=== PATIENT | female | born 1955 | race Caucasian/White ===

== ENCOUNTER 2016-02-21 08:26 | Emergency (ER) | payer BC ==
[~2016-02-21] VITALS: Ht 167.6 cm; Wt 55.0 kg
[2016-02-21 08:28] VITALS: TEMP 36.8; Ht 167.6 cm; Wt 55.0 kg
--- NOTE | 2016-02-21 08:49 | EMERGENCY ROOM VISIT NOTE ---
History First contact with patient: 08:32 Chief Complaint: NEURO SYMPTOMS Stated Complaint: FEVER, MEMORY LOSS WHILE AT THE GYM Nursing Triage Summary: Pt states, "I was at the gym working out hard. I didn't eat and also just got back from [place] so my body isn't back to normal. All the sudden I forgot what was happening for a couple mins. I went home and took my bp and it was high. At one point my diastolic was 100. I think my bp was 180/100." Pt denies h/a. Answering questions appopriately in triage. History of Present Illness The patient is a 60 year old female who presents to the Emergency Room with complaints of an episode of confusion and memory loss, associated with an elevated blood pressure. Patient was at the gym this morning, when suddenly her friends noticed that she was very confused and couldn't remember what she had done or where she was going next. The episode lasted a few minutes, and was not associated with facial drooping, slurring speech, limb weakness, visual deficits or headache. She denies LOC, chest pain or shortness of breath. When the patient got home, she measured her blood pressure and it was elevated at 180/100, but it has since decreased to 133/99. Patient claims she is sleep deprived after having returned from her trip to [place] on Saturday, she had coffee and very little food before going to the gym , and is dealing with personal life stressors as well. This is not the first time she has gone to the gym since returning home last Saturday. Patient states that she did recently suffer an injury to her head 2 days ago after hitting it off of the corner of a cabinet, but she didn't suffer symptoms at that time. Currently, she denies being in any discomfort, but she is still having difficulty remembering the events that happened during the episode of confusion earlier today. Patient denies recent fevers, chills, abdominal pain, nausea, vomiting, diarrhea or urinary symptoms. Review of Systems See HPI for pertinent positives and negatives. A total of ten systems were reviewed and were otherwise negative. Past Medical/Surgical History Medical Problems: (1) Cataract (2) Osteoporosis (3) Radial head fracture Social History Smoking Status: Former Smoker Current/Historical Medications No Active Prescriptions or Reported Meds Allergies Coded Allergies: Penicillins (Verified Allergy, Unknown, .., 02/21/16) Physical Exam Vital Signs Date Time Temp Pulse Resp B/P Pulse Ox O2 Delivery O2 Flow Rate FiO2 02/21/16 11:20 72 18 130/78 100 02/21/16 09:40 74 18 128/87 99 Room Air 02/21/16 08:58 85 02/21/16 08:53 78 18 144/93 99 Room Air 02/21/16 08:52 98 Room Air 02/21/16 08:28 36.8 89 18 151/89 99 Room Air Physical Exam GENERAL: alert, well appearing, thin, sitting in bed, no acute distress, non- toxic HEAD: Normocephalic, atraumatic. Tenderness above left eyebrow due to recent trauma without No sinus tenderness. EYES: PERRL, EOMI, normal conjunctiva OROPHARYNX: no exudate, no erythema, lips, buccal mucosa, and tongue normal and mucous membranes are dry NECK: supple, no nuchal rigidity, no adenopathy, non-tender LUNGS: Clear to auscultation. Normal chest wall mechanics, good air entry. No crepitations, crackles, or wheezes HEART: no murmurs, S1 normal and S2 normal CHEST: No reproducible tenderness. ABDOMEN: abdomen soft, non-tender, normo-active bowel sounds, no masses, no rebound or guarding. BACK: Back is symmetrical on inspection, no deformities, no midline tenderness, no CVA tenderness. SKIN: Warm, pink, dry. No erythema, rashes, or bruising. EXTREMITIES: Grossly normal. Moving all 4 limbs, strength 5/5. No pitting edema. Calves non tender. NEURO: Alert, Ox3. No focal deficits. Normal sensorium. Cranial nerves II-XII intact except uvular deviation to left. Normal speech. Kernig and Brudzinski negative. 5/5 cloth handler strength. 5/5 strength on leg raise. PSYCH: Mood and affect appropriate. Medical Decision & Procedures ER Provider Diagnostic Interpretation: CHEST ONE VIEW PORTABLE HISTORY: Fever. Stroke COMPARISON: Chest 06/16/2010. FINDINGS: The lungs are clear. Cardiac silhouette is normal in size. No pleural effusions. No pneumothorax. IMPRESSION: No acute process. CT SCAN OF THE BRAIN WITHOUT IV CONTRAST CLINICAL HISTORY: Strokelike symptoms. Memory loss. COMPARISON STUDY: No priors. TECHNIQUE: Unenhanced axial CT scan of the brain is performed from the vertex to the skull base. Automated dose control exposure was utilized. CT DOSE: 614.27 mGy.cm FINDINGS: Brain parenchyma: The brain parenchyma is normal in appearance. There is no hemorrhage, mass effect, or evidence of acute territorial ischemia by CT criteria. Vee-white matter is preserved. No extra-axial fluid collection is seen. Ventricles, sulci, cisterns: Normal in configuration. Intracranial vasculature: The visualized intracranial vasculature at the skull base is normal in appearance. Calvarium: Unremarkable. Sinuses and mastoids: There is trace mucosal thickening in the left maxillary antrum. The remaining visualized paranasal sinuses are clear. The mastoid air cells are well pneumatized. Orbits: The bony orbits are grossly intact. IMPRESSION: There is no hemorrhage, mass effect, or evidence of acute territorial ischemia by CT criteria. ULTRASOUND BILATERAL LOWER EXTREMITY VENOUS CLINICAL HISTORY: Fever. Memory loss. Fall. Transient ischemic attack. COMPARISON STUDY: No priors. TECHNIQUE: Real-time, grayscale, and color Doppler sonography of the deep veins of the right and left lower extremity was performed from the inguinal crease to the calf. Compression and augmentation were utilized. FINDINGS: There is no sonographic evidence of deep venous thrombosis identified in the right or left lower extremity. The common femoral, superficial femoral, and popliteal veins are patent and normally compressible bilaterally. The greater saphenous vein and the profunda femoris vein at the junction with the common femoral vein are clear in both legs. The visualized calf veins are patent bilaterally. IMPRESSION: There is no sonographic evidence of deep venous thrombosis identified in the right or left lower extremity. Laboratory Results 02/21/16 09:05 Red Blood Count 4.75, Mean Corpuscular Volume 86.3, Mean Corpuscular Hemoglobin 29.3, Mean Corpuscular Hemoglobin Concent 33.9, Mean Platelet Volume 12.1, Neutrophils (%) (Auto) 77.1, Lymphocytes (%) (Auto) 15.5, Monocytes (%) (Auto) 6.4, Eosinophils (%) (Auto) 0.4, Basophils (%) (Auto) 0.3, Neutrophils # (Auto) 6.06, Lymphocytes # (Auto) 1.22, Monocytes # (Auto) 0.50, Eosinophils # (Auto) 0.03, Basophils # (Auto) 0.02 02/21/16 09:05 Test 02/21/16 08:53 02/21/16 09:05 Urine Opiates Screen NEG (NEG) Urine Methadone, Qualitative NEG (NEG) Urine Barbiturates NEG (NEG) Urine Phencyclidine (PCP) Level NEG (NEG) Ur Amphetamine/Methamphetamine NEG (NEG) MDMA (Ecstasy) Screen NEG (NEG) Urine Benzodiazepines Screen NEG (NEG) Urine Cocaine Metabolite NEG (NEG) Urine Marijuana (THC) NEG (NEG) White Blood Count 7.85 K/uL (4.8-10.8) Red Blood Count 4.75 M/uL (4.2-5.4) Hemoglobin 13.9 g/dL (12.0-16.0) Hematocrit 41.0 % (37-47) Mean Corpuscular Volume 86.3 fL (80-100) Mean Corpuscular Hemoglobin 29.3 pg (25-34) Mean Corpuscular Hemoglobin Concent 33.9 g/dl (32-36) Platelet Count 115 K/uL (130-400) Mean Platelet Volume 12.1 fL (7.4-10.4) Neutrophils (%) (Auto) 77.1 % Lymphocytes (%) (Auto) 15.5 % Monocytes (%) (Auto) 6.4 % Eosinophils (%) (Auto) 0.4 % Basophils (%) (Auto) 0.3 % Neutrophils # (Auto) 6.06 K/uL (1.4-6.5) Lymphocytes # (Auto) 1.22 K/uL (1.2-3.4) Monocytes # (Auto) 0.50 K/uL (0.11-0.59) Eosinophils # (Auto) 0.03 K/uL (0-0.5) Basophils # (Auto) 0.02 K/uL (0-0.2) RDW Standard Deviation 41.7 fL (36.4-46.3) RDW Coefficient of Variation 13.2 % (11.5-14.5) Immature Granulocyte % (Auto) 0.3 % Immature Granulocyte # (Auto) 0.02 K/uL (0.00-0.02) Anion Gap 6.0 mmol/L (3-11) Est Creatinine Clear Calc Drug Dose 68.3 ml/min Estimated GFR () 98.8 Estimated GFR (Non- 85.3 BUN/Creatinine Ratio 27.2 (10-20) Calcium Level 9.0 mg/dl (8.5-10.1) Total Creatine Kinase 92 U/L (26-192) Creatine Kinase MB 2.4 ng/ml (0.5-3.6) Creatine Kinase MB Ratio 2.6 (0-3.0) Troponin I < 0.015 ng/ml (0-0.045) Medications Administered Medications (Trade) Dose Ordered Sig/Christin Route Start Time Stop Time Status Last Admin Dose Admin Sodium Chloride (Nss 1000ml) 1,000 ml @ 50 mls/hr Q20H IV 02/21/16 08:55 02/21/16 11:35 DC 02/21/16 09:16 50 MLS/HR ECG Indication: altered mental status Rhythm: normal sinus Findings: no acute ischemic change, no ectopy Comparison ECG Date: Prolonged IN interval Change: no significant change Medical Decision 60 year old female presented with acute episode of confusion and memory lapse The patient was evaluated in room B9. A complete history and physical exam was performed. Differential Diagnosis includes but is not limited to ischemic Stroke, hemorrhagic stroke, bells palsy, mass, neoplasm, migraine headache, seizure, subarachnoid hemorrhage, TIA, hypoglycemia, and transient global amnesia. Patient declined analgesia for symptom relief. Additionally, 1L of IV normal saline was given to improve hydration status. EKG showed normal sinus rhythm without ischemic changes Lab work was performed. CBC, BMP, and cardiac enzymes were all within normal limits. CXR revealed no acute process. CT showed There is no hemorrhage, mass effect, or evidence of acute territorial ischemia by CT criteria. U/S doppler reported There is no sonographic evidence of deep venous thrombosis identified in the right or left lower extremity. Urine screen was negative for any drugs/toxicology Patient was updated of results. She was advised to follow up with her PCP regarding her elevated blood pressure and return to the ER if symptoms returned or if other concerning symptoms presented. Patient understands and agreeable with care plan. Patient discharged home well. Impression Primary Impression: Altered mental state Additional Impression: Hypertension Departure Information Dispostion Home / Self-Care Condition GOOD Prescriptions No Active Prescriptions or Reported Meds Referrals Mike Stapleton M.D. (PCP) Patient Instructions A Signature Page, My [facility] Additional Instructions You were seen in the ED today for an acute episode of altered mental status and hypertension. You vitals were noted to be improved. Lab work done was all within normal limits. Imaging of the head, chest and the lower limbs were all normal as well. This was reassuring. Upon discharge, we urge you to follow up with your PCP with regards to your blood pressure. Controlling blood pressure is important for long-term health maintenance. You have been examined and treated today on an emergency basis only. This is not a substitute for, or an effort to provide, complete comprehensive medical care. It is impossible to recognize and treat all injuries or illnesses in a single emergency department visit. It is therefore important that you make a follow up with your physician for close monitoring. We urge you to return to ER if similar symptoms return or if you develop worsening or persistent dizziness, vomiting, headache, fevers, chest pains, difficulty breathing, black or bloody stools, slurred speech, numbness, weakness , visual changes, or as needed. Problem Qualifiers Primary Impression: Altered mental state Altered mental status type: transient alteration of awareness Qualified Codes : R40.4 - Transient alteration of awareness
[2016-02-21 08:52] VITALS: O2SAT 98
[2016-02-21] MEDS ORDERED: SODIUM CHLORIDE 0.9% 1000ML 1,000 ML IV SCH (08:55)
--- NOTE | 2016-02-21 09:21 | DIAGNOSTIC IMAGING REPORT ---
CHEST ONE VIEW PORTABLE HISTORY: Fever. Stroke COMPARISON: Chest 06/16/2010. FINDINGS: The lungs are clear. Cardiac silhouette is normal in size. No pleural effusions. No pneumothorax. IMPRESSION: No acute process. Electronically signed by: Delroy Kilgore M.D. 02/21/2016 9:19 AM Dictated Date/Time: 02/21/2016 9:15 AM
[2016-02-21 09:31] LABS: BENZODIAZEPINE, URINE NEG (NEG); COCAINE,URINE NEG (NEG); PHENCYCLIDINE, URINE NEG (NEG)
--- NOTE | 2016-02-21 09:49 | DIAGNOSTIC IMAGING REPORT ---
CT SCAN OF THE BRAIN WITHOUT IV CONTRAST CLINICAL HISTORY: Strokelike symptoms. Memory loss. COMPARISON STUDY: No priors. TECHNIQUE: Unenhanced axial CT scan of the brain is performed from the vertex to the skull base. Automated dose control exposure was utilized. CT DOSE: 614.27 mGy.cm FINDINGS: Brain parenchyma: The brain parenchyma is normal in appearance. There is no hemorrhage, mass effect, or evidence of acute territorial ischemia by CT criteria. Vee-white matter is preserved. No extra-axial fluid collection is seen. Ventricles, sulci, cisterns: Normal in configuration. Intracranial vasculature: The visualized intracranial vasculature at the skull base is normal in appearance. Calvarium: Unremarkable. Sinuses and mastoids: There is trace mucosal thickening in the left maxillary antrum. The remaining visualized paranasal sinuses are clear. The mastoid air cells are well pneumatized. Orbits: The bony orbits are grossly intact. IMPRESSION: There is no hemorrhage, mass effect, or evidence of acute territorial ischemia by CT criteria. Electronically signed by: Eliezer Shah M.D. 02/21/2016 9:47 AM Dictated Date/Time: 02/21/2016 9:41 AM
[2016-02-21 09:51] LABS: BLOOD UREA NITROGEN 21 mg/dl (7-18); BUN/CREATININE RATIO 27.2 (10-20); CARBON DIOXIDE 31 mmol/L (21-32); CHLORIDE 106 mmol/L (98-107); CREATININE 0.76 mg/dl (0.60-1.20); GLUCOSE 87 mg/dl (70-99); POTASSIUM 3.8 mmol/L (3.5-5.1); SODIUM 143 mmol/L (136-145)
[2016-02-21 09:56] LABS: CKMB/CK RATIO 2.6 (0-3.0)
[2016-02-21 09:57] LABS: BASO % 0.3 %; BASO ABS # 0.02 K/uL (0-0.2); COMPLETE YES; EOS % 0.4 %; IG% 0.3 %; LYMPH % 15.5 %; LYMPH ABS # 1.22 K/uL (1.2-3.4); MEAN CELL VOLUME 86.3 fL (80-100); MEAN CORPUSCULAR HEMOGLOBIN 29.3 pg (25-34); MEAN CORPUSCULAR HGB CONC 33.9 g/dl (32-36); MEAN PLATELET VOLUME 12.1 fL (7.4-10.4); MONO % 6.4 %; NEUT % 77.1 %; PLATELET COUNT 115 K/uL (130-400); RED BLOOD COUNT 4.75 M/uL (4.2-5.4); WHITE BLOOD COUNT 7.85 K/uL (4.8-10.8)
--- NOTE | 2016-02-21 10:39 | DIAGNOSTIC IMAGING REPORT ---
ULTRASOUND BILATERAL LOWER EXTREMITY VENOUS CLINICAL HISTORY: Fever. Memory loss. Fall. Transient ischemic attack. COMPARISON STUDY: No priors. TECHNIQUE: Real-time, grayscale, and color Doppler sonography of the deep veins of the right and left lower extremity was performed from the inguinal crease to the calf. Compression and augmentation were utilized. FINDINGS: There is no sonographic evidence of deep venous thrombosis identified in the right or left lower extremity. The common femoral, superficial femoral, and popliteal veins are patent and normally compressible bilaterally. The greater saphenous vein and the profunda femoris vein at the junction with the common femoral vein are clear in both legs. The visualized calf veins are patent bilaterally. IMPRESSION: There is no sonographic evidence of deep venous thrombosis identified in the right or left lower extremity. Electronically signed by: Eliezer Shah M.D. 02/21/2016 10:37 AM Dictated Date/Time: 02/21/2016 10:37 AM
--- NOTE | 2016-02-21 11:15 | EMERGENCY ROOM VISIT NOTE ---
History Report prepared by Geovany: Alida Castañeda Under the Supervision of: Dr. Kelechi Barnard M.D. First contact with patient: 08:32 Chief Complaint: NEURO SYMPTOMS Stated Complaint: FEVER, MEMORY LOSS WHILE AT THE GYM Nursing Triage Summary: Pt states, "I was at the gym working out hard. I didn't eat and also just got back from [place] so my body isn't back to normal. All the sudden I forgot what was happening for a couple mins. I went home and took my bp and it was high. At one point my diastolic was 100. I think my bp was 180/100." Pt denies h/a. Answering questions appopriately in triage. History of Present Illness The patient is a 60 year old female who presents to the Emergency Room with complaints of a sudden onset of confusion, lasting a couple of minutes, while at the gym earlier this morning. Currently, she denies being in any discomfort, but she is still having difficulty remembering the events that happened during the episode of confusion earlier today. At the time of onset, the patient was working out at the gym when her friends noticed that she suddenly seemed to become confused as she didn't remember rotating through the previous station, or where she was supposed to go next, which is abnormal for her. During the episodes, she denies experiencing unilateral weakness, facial droop, slurred speech, visual deficits or headache. She also did not lose consciousness, have chest pain or become short of breath. Patient states that she did recently suffer an injury to her head 2 days ago after hitting it off of the corner of a cabinet, but she didn't suffer symptoms at that time. She also just returned home from [place] last week and is still recovering from the time change. This is the first time she has gone to the gym since returning home. also notes that she did not eat breakfast this morning before going to the gym. When the patient got home, she measured her blood pressure and it was elevated at 180/100 , but it has since decreased to 133/99. Patient denies recent fevers, chills, chest pain, shortness of breath, abdominal pain, nausea, vomiting, diarrhea or urinary symptoms. Source of History: patient Onset: earlier this morning Position: head Symptom Intensity: no current discomfort Quality: other (confusion) Timing: other (brief episode) Modifying Factors (Worsening): other (working out at the gym) Associated Symptoms: No LOC, No SOB, No abdominal pain, No chest pain, No chills, No diarrhea, No fevers, No headache, No nausea, No urinary symptoms, No vomiting Review of Systems See HPI for pertinent positives & negatives. A total of 10 systems reviewed and were otherwise negative. Social History Smoking Status: Former Smoker Marital Status: Housing Status: lives with significant other Occupation Status: other (dairy products maker) Current/Historical Medications No Active Prescriptions or Reported Meds Allergies Coded Allergies: Penicillins (Verified Allergy, Unknown, .., 02/21/16) Physical Exam Vital Signs Date Time Temp Pulse Resp B/P Pulse Ox O2 Delivery O2 Flow Rate FiO2 02/21/16 11:20 72 18 130/78 100 02/21/16 09:40 74 18 128/87 99 Room Air 02/21/16 08:58 85 02/21/16 08:53 78 18 144/93 99 Room Air 02/21/16 08:52 98 Room Air 02/21/16 08:28 36.8 89 18 151/89 99 Room Air Physical Exam GENERAL: Patient is a healthy-appearing well-nourished female HEAD: Normocephalic atraumatic EYES: Ocular movements intact pupils equal and react to light OROPHARYNX mucous membranes are moist no exudates present no erythema or edema present NECK: Supple no nuchal rigidity CHEST: Good equal expansion LUNGS: Clear and equal to auscultation CARDIAC: Normal S1 and S2 ABDOMEN: Soft nontender no guarding BACK: No CVA tenderness EXTREMITIES: No pain upon palpation normal muscle strength in all groups no clubbing cyanosis or edema NEURO: Patient is following commands is answering questions appropriately. Alert and oriented x3 Cranial Nerves 2-12 grossly intact Medical Decision & Procedures ER Provider Diagnostic Interpretation: CT and US results as stated below per my review and radiologist interpretation: X-ray results as stated below per interpretation by me and the radiologist: ULTRASOUND BILATERAL LOWER EXTREMITY VENOUS CLINICAL HISTORY: Fever. Memory loss. Fall. Transient ischemic attack. COMPARISON STUDY: No priors. TECHNIQUE: Real-time, grayscale, and color Doppler sonography of the deep veins of the right and left lower extremity was performed from the inguinal crease to the calf. Compression and augmentation were utilized. FINDINGS: There is no sonographic evidence of deep venous thrombosis identified in the right or left lower extremity. The common femoral, superficial femoral, and popliteal veins are patent and normally compressible bilaterally. The greater saphenous vein and the profunda femoris vein at the junction with the common femoral vein are clear in both legs. The visualized calf veins are patent bilaterally. IMPRESSION: There is no sonographic evidence of deep venous thrombosis identified in the right or left lower extremity. Electronically signed by: Eliezer Shah M.D. 02/21/2016 10:37 AM Dictated Date/Time: 02/21/2016 10:37 AM CHEST ONE VIEW PORTABLE HISTORY: Fever. Stroke COMPARISON: Chest 06/16/2010. FINDINGS: The lungs are clear. Cardiac silhouette is normal in size. No pleural effusions. No pneumothorax. IMPRESSION: No acute process. Electronically signed by: Delroy Kilgore M.D. 02/21/2016 9:19 AM Dictated Date/Time: 02/21/2016 9:[address] SCAN OF THE BRAIN WITHOUT IV CONTRAST CLINICAL HISTORY: Strokelike symptoms. Memory loss. COMPARISON STUDY: No priors. TECHNIQUE: Unenhanced axial CT scan of the brain is performed from the vertex to the skull base. Automated dose control exposure was utilized. CT DOSE: 614.27 mGy.cm FINDINGS: Brain parenchyma: The brain parenchyma is normal in appearance. There is no hemorrhage, mass effect, or evidence of acute territorial ischemia by CT criteria. Vee-white matter is preserved. No extra-axial fluid collection is seen. Ventricles, sulci, cisterns: Normal in configuration. Intracranial vasculature: The visualized intracranial vasculature at the skull base is normal in appearance. Calvarium: Unremarkable. Sinuses and mastoids: There is trace mucosal thickening in the left maxillary antrum. The remaining visualized paranasal sinuses are clear. The mastoid air cells are well pneumatized. Orbits: The bony orbits are grossly intact. IMPRESSION: There is no hemorrhage, mass effect, or evidence of acute territorial ischemia by CT criteria. Electronically signed by: Eliezer Shah M.D. 02/21/2016 9:47 AM CHEST ONE VIEW PORTABLE HISTORY: Fever. Stroke COMPARISON: Chest 06/16/2010. FINDINGS: The lungs are clear. Cardiac silhouette is normal in size. No pleural effusions. No pneumothorax. IMPRESSION: No acute process. Electronically signed by: Delroy Kilgore M.D. 02/21/2016 9:19 AM Dictated Date/Time: 02/21/2016 9:15 AM Laboratory Results 02/21/16 09:05 Red Blood Count 4.75, Mean Corpuscular Volume 86.3, Mean Corpuscular Hemoglobin 29.3, Mean Corpuscular Hemoglobin Concent 33.9, Mean Platelet Volume 12.1, Neutrophils (%) (Auto) 77.1, Lymphocytes (%) (Auto) 15.5, Monocytes (%) (Auto) 6.4, Eosinophils (%) (Auto) 0.4, Basophils (%) (Auto) 0.3, Neutrophils # (Auto) 6.06, Lymphocytes # (Auto) 1.22, Monocytes # (Auto) 0.50, Eosinophils # (Auto) 0.03, Basophils # (Auto) 0.02 02/21/16 09:05 Test 02/21/16 08:53 02/21/16 09:05 Urine Opiates Screen NEG (NEG) Urine Methadone, Qualitative NEG (NEG) Urine Barbiturates NEG (NEG) Urine Phencyclidine (PCP) Level NEG (NEG) Ur Amphetamine/Methamphetamine NEG (NEG) MDMA (Ecstasy) Screen NEG (NEG) Urine Benzodiazepines Screen NEG (NEG) Urine Cocaine Metabolite NEG (NEG) Urine Marijuana (THC) NEG (NEG) White Blood Count 7.85 K/uL (4.8-10.8) Red Blood Count 4.75 M/uL (4.2-5.4) Hemoglobin 13.9 g/dL (12.0-16.0) Hematocrit 41.0 % (37-47) Mean Corpuscular Volume 86.3 fL (80-100) Mean Corpuscular Hemoglobin 29.3 pg (25-34) Mean Corpuscular Hemoglobin Concent 33.9 g/dl (32-36) Platelet Count 115 K/uL (130-400) Mean Platelet Volume 12.1 fL (7.4-10.4) Neutrophils (%) (Auto) 77.1 % Lymphocytes (%) (Auto) 15.5 % Monocytes (%) (Auto) 6.4 % Eosinophils (%) (Auto) 0.4 % Basophils (%) (Auto) 0.3 % Neutrophils # (Auto) 6.06 K/uL (1.4-6.5) Lymphocytes # (Auto) 1.22 K/uL (1.2-3.4) Monocytes # (Auto) 0.50 K/uL (0.11-0.59) Eosinophils # (Auto) 0.03 K/uL (0-0.5) Basophils # (Auto) 0.02 K/uL (0-0.2) RDW Standard Deviation 41.7 fL (36.4-46.3) RDW Coefficient of Variation 13.2 % (11.5-14.5) Immature Granulocyte % (Auto) 0.3 % Immature Granulocyte # (Auto) 0.02 K/uL (0.00-0.02) Anion Gap 6.0 mmol/L (3-11) Est Creatinine Clear Calc Drug Dose 68.3 ml/min Estimated GFR () 98.8 Estimated GFR (Non- 85.3 BUN/Creatinine Ratio 27.2 (10-20) Calcium Level 9.0 mg/dl (8.5-10.1) Total Creatine Kinase 92 U/L (26-192) Creatine Kinase MB 2.4 ng/ml (0.5-3.6) Creatine Kinase MB Ratio 2.6 (0-3.0) Troponin I < 0.015 ng/ml (0-0.045) Labs reviewed by ED physician. Medications Administered Medications (Trade) Dose Ordered Sig/Christin Route Start Time Stop Time Status Last Admin Dose Admin Sodium Chloride (Nss 1000ml) 1,000 ml @ 50 mls/hr Q20H IV 02/21/16 08:55 03/22/16 08:54 02/21/16 09:16 50 MLS/HR ECG Indication: altered mental status Rate (beats per minute): 75 Rhythm: normal sinus Findings: no acute ischemic change, no ectopy ED Course 0830: Past medical records reviewed. The patient was evaluated in room B9. A complete history and physical examination was performed. 0855: NSS 1,000 ml @ 50 mls/hr IV was ordered. 0930: Patient was doing well at this time. She will go to US for additional radiograph studies. 1050: The patient was reevaluated at this time and was asymptomatic. I updated her on the results of her radiology reports and lab tests. Discharge instructions were also discussed at this time. She verbalized her understanding and agreement with the treatment plan, and she is now ready for disposition. Medical Decision Differential diagnosis: Etiologies such as metabolic, infection, hypo/hyperglycemia, electrolyte abnormalities, cardiac sources, intracerebral event, toxicologic, neurologic, as well as others were entertained. This is a 60-year-old female who presents emergency department complaining of sudden onset of acute memory loss. The patient does not remember the time period that she cannot account for while she was exercising in gym class today. Per bystanders the patient appeared confused. She also just arrived off a plane from a trip to [place] proximally 1 week ago. The patient was hypertensive during this event however her blood pressure has slowly come down. I do believe the patient may be suffering from either hypertensive urgency or TIA. For this reason she was sent for ultrasounds of her bilateral legs as well as a CAT scan of the head. Her test did not reveal any acute process. The patient believe she is under high stress due to a family incident at home. She denies being suicidal or homicidal. I strongly recommended that the patient follow-up with her primary care physician as she appears to be back at her baseline for continued stroke workup as the pt is reluctant to continue workup in the emergency department. Resident Physician Supervision Note: I was present with Dr. Galvan during the history and exam. I discussed the case with the resident and agree with the findings and plan as documented in the note. Documented By: Kelechi Barnard Impression Primary Impression: Altered mental state Additional Impression: Hypertension Scribe Attestation The scribe's documentation has been prepared under my direction and personally reviewed by me in its entirety. I confirm that the note above accurately reflects all work, treatment, procedures, and medical decision making performed by me. Departure Information Dispostion Home / Self-Care Prescriptions No Active Prescriptions or Reported Meds Referrals Mike Stapleton M.D. (PCP) Forms HOME CARE DOCUMENTATION FORM, IMPORTANT VISIT INFORMATION Patient Instructions A Signature Page, My [facility] [employer] Additional Instructions You were seen in the ED today for an acute episode of altered mental status and hypertension. You vitals were noted to be improved. Lab work done was all within normal limits. Imaging of the head, chest and the lower limbs were all normal as well. This was reassuring. Upon discharge, we urge you to follow up with your PCP with regards to your blood pressure. 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 You have been examined and treated today on an emergency basis only. This is not a substitute for, or an effort to provide, complete comprehensive medical care. It is impossible to recognize and treat all injuries or illnesses in a single emergency department visit. It is therefore important that you make a follow up with your physician for close monitoring. We urge you to return to ER if similar symptoms return or if you develop worsening or persistent dizziness, vomiting, headache, fevers, chest pains, difficulty breathing, black or bloody stools, slurred speech, numbness, weakness , visual changes, or as needed. Problem Qualifiers Primary Impression: Altered mental state Altered mental status type: transient alteration of awareness Qualified Codes : R40.4 - Transient alteration of awareness Additional Impression: Hypertension Hypertension type: unspecified secondary hypertension Qualified Codes: I15.9 - Secondary hypertension, unspecified
[2016-02-21 11:20] VITALS: BP 130/78; PULSE 72; O2SAT 100
== END 2016-02-21 11:21 | disposition home or self-care (01) ==
LOC: C.EDB 08:27
DX: R41.82 Altered mental status, unspecified (principal); I10 Essential (primary) hypertension; Z87.891 Personal history of nicotine dependence

== ENCOUNTER → 2016-03-21 | Outpatient (CLI) | payer BC ==
[~2016-03-21] MED LIST: CHOL1CAP57 PO
--- NOTE | 2016-03-22 12:37 | MAMMOGRAPHY REPORT ---
BILATERAL DIGITAL SCREENING MAMMOGRAM TOMOSYNTHESIS WITH CAD: 03/21/2016 CLINICAL HISTORY: Routine screening. Patient has no complaints. TECHNIQUE: Breast tomosynthesis in addition to standard 2D mammography was performed. Current study was also evaluated with a Computer Aided Detection (CAD) system. COMPARISON: Comparison is made to exams dated: 01/21/2015 mammogram, 09/25/2012 mammogram, 06/11/2007 mammogram, and 02/02/2015 mammogram - [facility]. BREAST COMPOSITION: The tissue of both breasts is almost entirely fatty. FINDINGS: The parenchymal pattern is unchanged. No developing mass, architectural distortion or clu ster of suspicious microcalcifications is seen in either breast. IMPRESSION: ACR BI-RADS CATEGORY 2: BENIGN There is no mammographic evidence of malignancy. A 1 year screening mammogram is recommended. The p atient will receive written notification of the results. Approximately 10% of breast cancers are not detected with mammography. A negative mammographic repor t should not delay biopsy if a clinically suggestive mass is present. Teressa Dozier M.D. ay/:03/21/2016 22:20:01 Crew Foreman: Boubacar MOHAMUD(R)(M), [facility] letter sent: Normal 1/2 BI-RADS Code: ACR BI-RADS Category 2: Benign
== END | disposition home or self-care (01) ==
LOC: C.MAMM 16:28
PROVIDERS: ATTEND Family Medicine
DX: Z12.31 Encounter for screening mammogram for malignant neoplasm of breast (principal)

== ENCOUNTER 2016-04-13 07:59 | Emergency (ER) | payer BC ==
[~2016-04-13] VITALS: Ht 167.6 cm; Wt 55.6 kg
[2016-04-13 08:12] VITALS: TEMP 36.4; Ht 167.6 cm; Wt 55.6 kg
[2016-04-13 08:16] VITALS: O2SAT 100
[2016-04-13] MEDS ORDERED: ASPIRIN 324 MG CHEW PO STA (08:22)
[2016-04-13] MEDS ORDERED: NITROGLYCERIN OINT 2% 1GM PACKET EXT STA (08:22)
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
[2016-04-13] MEDS ORDERED: CHOL1CAP57 PO (08:48)
[2016-04-13 09:12] LABS: BUN/CREATININE RATIO 23.1 (10-20); CALCIUM 8.9 mg/dl (8.5-10.1); CREATININE 0.74 mg/dl (0.60-1.20); POTASSIUM 3.9 mmol/L (3.5-5.1)
[2016-04-13 09:17] LABS: ALB/GLOB RATIO 1.2 (0.9-2); CKMB/CK RATIO 3.1 (0-3.0)
--- NOTE | 2016-04-13 09:19 | DIAGNOSTIC IMAGING REPORT ---
TWO VIEW CHEST CLINICAL HISTORY: Atypical chest pain radiating the back. FINDINGS: PA and lateral chest radiographs are compared to study dated 02/21/2016. The heart is top normal in size. There is atherosclerotic calcification of the thoracic aorta. Emphysema and chronic interstitial thickening are similar to previous. No airspace consolidation or pleural effusion is identified. There is no pneumothorax. The skeletal structures are osteopenic. The bony thorax appears intact. IMPRESSION: Emphysematous change with no acute cardiopulmonary abnormality. Electronically signed by: Eliezer Shah M.D. 04/13/2016 9:17 AM Dictated Date/Time: 04/13/2016 9:08 AM
[2016-04-13 09:23] LABS: HEMATOCRIT 41.6 % (37-47); MEAN CORPUSCULAR HEMOGLOBIN 28.7 pg (25-34); MEAN CORPUSCULAR HGB CONC 33.4 g/dl (32-36); MEAN PLATELET VOLUME 12.4 fL (7.4-10.4); PLATELET COUNT 114 K/uL (130-400); RED BLOOD COUNT 4.84 M/uL (4.2-5.4); WHITE BLOOD COUNT 7.63 K/uL (4.8-10.8)
[2016-04-13 09:25] LABS: BASO % 0.1 %; BASO ABS # 0.01 K/uL (0-0.2); COMPLETE YES; EOS % 0.8 %; IG% 0.1 %; LYMPH % 16.3 %; LYMPH ABS # 1.24 K/uL (1.2-3.4); MONO % 8.5 %; NEUT % 74.2 %; PLT ESTIMATE DECREASED
[2016-04-13 14:31] VITALS: BP 111/68; PULSE 76; O2SAT 99
--- NOTE | 2016-04-13 16:21 | EXERCISE STRESS ECHO ---
*NOTICE TO RECEIVING [employer] This information is strictly Confidential and protected under [place] law. [place] law prohibits you from making any further disclosure of this information unless further disclosure is expressly permitted by the written consent of the person to whom it pertains or is authorized by law. A general authorization for the release of medical or other information is not sufficient for this purpose. Hospital accepts no responsibility if the information is made available to any other person, INCLUDING THE PATIENT. Interpretation Summary * Name: ISIDRA LOZA Study Date: 04/13/2016 12:53 PM BP: 137/91 mmHg * Patient Location: [facility] HR: 62 * : 1955 (M/d/yyyy) Gender: Female Height: 66 in * Age: 60 yrs Ethnicity: [place] Weight: 122 lb * Ordering Physician: Óscar Henderson * Referring Physician: ÓSCAR HENDERSON * Performed By: Emily Silvestre RDCS * * Reason For Study: CHEST PAIN * BSA: 1.6 m2 * History: CHEST PAIN * -- Conclusions -- * Normal exercise echocardiogram withotu inducible ischemia * The left ventricular wall motion is normal at rest. * Left ventricular systolic function is normal. * There is mild mitral regurgitation. Procedure Details * ECHOEX, CPT #33033 Left Ventricular Findings with Stress * Patient had good exercise tolerance No EKG or echo findings suggestive of ischemia Normal BP response Mild index symptoms of atypical chest pain were noted and resolved with a change in position Good heart rate recovery Cazares treadmill score: 6 (low risk) Left Ventricle * The left ventricle is normal in size. * Large papillary muscle * Ejection Fraction = 55-60%. * Left ventricular systolic function is normal. * The left ventricular wall motion is normal at rest. Right Ventricle * The right ventricle is grossly normal size. * The right ventricular systolic function is normal. Atria * The left atrial size is normal. * Right atrial size is normal. Mitral Valve * Redundant mitral apparatus * There is mild mitral regurgitation. Tricuspid Valve * The tricuspid valve is not well visualized, but is grossly normal. * There is trace tricuspid regurgitation. Aortic Valve * The aortic valve is trileaflet. * No hemodynamically significant valvular aortic stenosis. * There is no significant aortic regurgitation. Pulmonic Valve * The pulmonic valve is not well visualized. Great Vessels * The aortic root and proximal ascending aorta are normal sized. Pericardium * There is no pericardial effusion. Stress Parameters * Normal baseline electrocardiogram. * Stress ECG: No ST changes. No arrhythmias. * Rest heart rate was '62' BPM. * Rest blood pressure was '137/91' * Maximum heart rate achieved was 166 bpm. * Maximum heart rate was 103 % of maximum age-predicted heart rate. * Maximum blood pressure was '197/82' * Total exercise time was '10:01' * Maximum exercise MET level achieved was '11.70' METS * Maximum treadmill speed was '4.20' miles per hour. * Maximum treadmill elevation was '16.00'% grade. * Exercise was terminated due to 'ACHIEVING TARGET HR' Left Ventricular Diastolic Function * Normal MMode 2D Measurements and Calculations IVSd 0.76 cm IVSs 1.1 cm LVIDd 4.5 cm LVIDs 3.1 cm LVPWd 1.1 cm LVPWs 1.4 cm IVS/LVPW 0.69 FS 30.4 % EDV(Teich) 91.4 ml ESV(Teich) 38.3 ml EF(Teich) 58.0 % EDV(cubed) 89.8 ml ESV(cubed) 30.2 ml EF(cubed) 66.4 % % IVS thick 38.3 % % LVPW thick 28.9 % LV mass(C)d 138.9 grams LV mass(C)dI 85.7 grams/m\S\2 LV mass(C)s 121.5 grams LV mass(C)sI 74.9 grams/m\S\2 SV(Teich) 53.0 ml SI(Teich) 32.7 ml/m\S\2 SV(cubed) 59.6 ml SI(cubed) 36.8 ml/m\S\2 Ao root diam 3.0 cm Ao root area 7.3 cm\S\2 LA dimension 3.2 cm LA/Ao 1.0 LVAd ap4 29.7 cm\S\2 LVLd ap4 8.3 cm EDV(MOD-sp4) 88.2 ml EDV(sp4-el) 90.4 ml LVAs ap4 18.2 cm\S\2 LVLs ap4 7.3 cm ESV(MOD-sp4) 39.8 ml ESV(sp4-el) 38.3 ml EF(MOD-sp4) 54.9 % EF(sp4-el) 57.6 % LVAd ap2 26.3 cm\S\2 LVLd ap2 8.5 cm EDV(MOD-sp2) 68.8 ml EDV(sp2-el) 69.4 ml LVAs ap2 16.0 cm\S\2 LVLs ap2 7.4 cm ESV(MOD-sp2) 31.3 ml ESV(sp2-el) 29.4 ml EF(MOD-sp2) 54.5 % EF(sp2-el) 57.7 % LVLd %diff 2.0 % EDV(MOD-bp) 77.3 ml LVLs %diff 1.1 % ESV(MOD-bp) 35.3 ml EF(MOD-bp) 54.3 % SV(MOD-sp4) 48.4 ml SI(MOD-sp4) 29.9 ml/m\S\2 SV(MOD-sp2) 37.5 ml SI(MOD-sp2) 23.1 ml/m\S\2 SV(MOD-bp) 42.0 ml SI(MOD-bp) 25.9 ml/m\S\2 SV(sp4-el) 52.1 ml SI(sp4-el) 32.1 ml/m\S\2 SV(sp2-el) 40.0 ml SI(sp2-el) 24.7 ml/m\S\2 Doppler Measurements and Calculations MV E max nelly 41.2 cm/sec MV A max nelly 38.3 cm/sec MV E/A 1.1 MV dec time 0.50 sec Ao V2 max 124.1 cm/sec Ao max PG 6.2 mmHg Ao max PG (full) 3.5 mmHg LV V1 max PG 2.7 mmHg LV V1 max 81.8 cm/sec
--- NOTE | 2016-04-13 16:40 | EMERGENCY ROOM VISIT NOTE ---
ED Visit Note First contact with patient: 08:10 60-year-old female with chest pain was fully evaluated by Galo Rhodes PA-C. Please see his note. I also independently evaluated the patient.. The patient had atypical chest pain. A stress test was performed by the body recall instructor. Please see his note. The patient passed that stress test without difficulty. I do not believe the patient has a cardiac cause for her pain. The patient was discharged encouraged to follow-up with her family physician.
== END 2016-04-13 14:55 | disposition home or self-care (01) ==
LOC: C.EDB 08:00 → C.EDA 14:55
DX: R07.89 Other chest pain (principal); D69.6 Thrombocytopenia, unspecified

== ENCOUNTER → 2016-05-15 | Outpatient (CLI) | payer BC ==
[2016-05-15 17:10] LABS: PFT COL EPI 80 SECONDS (80-184)
== END | disposition home or self-care (01) ==
LOC: C.LAB 15:17
PROVIDERS: ATTEND Family Medicine
DX: R79.1 Abnormal coagulation profile (principal); D69.6 Thrombocytopenia, unspecified; Z11.59 Encounter for screening for other viral diseases; Z11.4 Encounter for screening for human immunodeficiency virus [HIV]

== ENCOUNTER → 2017-04-23 | Outpatient (CLI) | payer BC | END | disposition home or self-care (01) | LOC: C.MAMM 15:32 | PROVIDERS: ATTEND Family Medicine | DX: M85.88 Other specified disorders of bone density and structure, other site (principal) ==